=== PATIENT | female | born 2000 | race Caucasian/White ===

== ENCOUNTER 2024-05-02 15:26 | Emergency (ER) | payer OTHER, SELFPAY ==
[2024-05-02 15:32] VITALS: BP 106/61; PULSE 61; RESP 14; TEMP 37.2; O2SAT 96; BMI 21.0
--- NOTE | 2024-05-02 16:27 | ED_ITS ---
HPI - Nausea/Vomiting/Diarrhea General Chief complaint: Nausea/Vomiting Stated complaint: Thinks salmonella Time Seen by Provider: 05/02/24 15:52 History of Present Illness HPI Narrative: This 23-year-old female comes in reporting symptoms of nausea with vomiting and some abdominal pain. She states that this came on after she was eating some salmon that was undercooked. She does not report any fevers. She has not had any diarrhea. She has been able to take liquids but does not feel like eating food at this time. She arrives here with normal vital signs. Related Data Previous Rx's ?Medication ?Instructions ?Recorded ondansetron HCl 4 mg tablet 4 mg PO Q6H #10 tabs 05/02/24 Allergies Allergy/AdvReac Type Severity Reaction Status Date / Time No Known Drug Allergies Allergy Verified 05/02/24 15:40 Review of Systems Status of ROS: Reports: 10 or more systems reviewed and unremarkable except as noted in History and below Narrative: Constitutional: No fevers, no weight gain or loss. Eyes: No discharge. No vision changes. HENT: No congestion, no sore throat, no ear pain. Cardiovascular: No chest pain, no palpitations. Respiratory: No shortness of breath, no wheezes, no cough. Gastrointestinal: No diarrhea. Diffuse abdominal pain with nausea and occasio nal vomiting. Genitourinary: No dysuria, no hematuria. Musculoskeletal: Normal range of motion. Skin: No rashes, no pruritis. Neurological: No dizziness, weakness, sensory change, speech change. Endo/Heme/Allergies: No bruising or bleeding. No polydipsia. Pysch: no suicidality, no anxiety, no insomnia. All other systems reviewed and are negative. PFSH PFS Social History service: No Exam Narrative: Exam Narrative: Constitutional: Well-developed, well-nourished, no acute distress. HEENT: Normocephalic, atraumatic. Neck: Normal range of motion. Nontender. Supple. Heart: Regular. No murmurs. Normal rate. Intact distal pulses. Lungs: Clear to auscultation. No chest discomfort. No wheezes, rhonchi, or rales. Abdomen: Normal bowel sounds. Diffuse tenderness in the abdomen. I am able to palpate rather deeply without much discomfort. No rebound tenderness. Genitalia: Deferred. Back: No midline tenderness. Normal range of motion. Extremities: Normal range of motion. No injury. Skin: Intact. No rash. Warm. No erythema or pallor. Neurologic: No altered sensation. No weakness. Alert and oriented. Psychiatric: No suicidality. No anxiety or depression. No insomnia. Nursing notes and vitals signs are reviewed. Const: Vital Signs, click to edit/add: Vital Signs - 24 hr 05/02/24 15:32 Temperature 98.9 F Pulse Rate [Pulse Oximeter] 61 Respiratory Rate 14 Blood Pressure [Ri ght Upper Arm] 106/61 Pulse Oximetry 96 Oxygen Delivery Me thod Room Air Course Vital Signs Vital signs: Initial Vital Signs Temperature 98.9 F 05/02/24 15:32 Temperature Source Temporal Artery Scan 05/02/24 15:32 Pulse Rate 61 05/02/24 15:32 Respiratory Rate 14 05/02/24 15:32 Blood Pressure 106/61 05/02/24 15:32 Blood Pressure Mean 76 05/02/24 15:32 Blood Pressure Position Sitting 05/02/24 15:32 Pulse Oximetry 96 05/02/24 15:32 Oxygen Delivery Method Room Air 05/02/24 15:32 Vital Signs Temperature 98.9 F 05/02/24 15:32 Pulse Rate 61 05/02/24 15:32 Respiratory Rate 14 05/02/24 15:32 Blood Pressure 106/61 05/02/24 15:32 Pulse Oximetry 96 05/02/24 15:32 Oxygen Delivery Method Room Air 05/02/24 15:32 Temperature 98.9 F 05/02/24 15:32 Pulse Rate 61 05/02/24 15:32 Respiratory Rate 14 05/02/24 15:32 Blood Pressure 106/61 05/02/24 15:32 Pulse Oximetry 96 05/02/24 15:32 Oxygen Delivery Method Room Air 05/02/24 15:32 MDM - Nausea/Vomiting/Diarrhea MDM Narrative Medical decision making narrative: This patient comes in with some nausea and vomiting after eating some food that did not sit right with her. She has normal vital signs. She is not having any diarrhea. I did discuss lab and imaging options with the patient and these were declined in a process of shared decision making. She did receive an oral dose of Zofran for symptomatic relief. She is able to take fluids and is reassured that her exam is not triggering concern. I did discuss signs and symptoms that would indicate a need for return and re-evaluation. She received a prescription for few tablets of Zofran. Discharge Plan Discharge Clinical Impression: Gastroenteritis Patient Disposition: Home, Self-Care Condition: Stable Additional Instructions: Take fluids regularly. Increase diet otherwise as tolerated. Use Zofran as needed and directed for nausea symptoms. Follow up with MD return if worsening. Prescriptions: New ondansetron HCl 4 mg tablet 4 mg PO Q6H Qty: 10 0RF Stand Alone Forms: [employer] Info Instructions
[2024-05-02] MEDS: ONDANSETRON ODT 4 MG TAB PO (16:30)
== END 2024-05-02 16:44 | disposition home or self-care (01) ==
LOC: ED 16:40
PROVIDERS: Emergency Provider Emergency Medicine Emergency Medical Services
DX: K52.9 Noninfective gastroenteritis and colitis, unspecified (principal)
CPT/HCPCS: 99283; 99284; A9270